=== PATIENT | female | born 1990 | race Caucasian/White ===

== ENCOUNTER 2020-05-16 09:35 | Emergency (ER) | payer BC, SELFPAY ==
--- NOTE | ~2020-05-16 | XR_ITS ---
EXAMINATION: XR ankle RT min 3V INDICATION: Right ankle pain TECHNIQUE: Four views of the right ankle are obtained. COMPARISON: None available FINDINGS: There is no fracture, dislocation, or subluxation. The bones, soft tissues, and joint space s are normal. IMPRESSION: 1. No acute osseous abnormality. Reviewed, dictated and finalized at location A.
[2020-05-16 09:50] VITALS: BP 124/88; PULSE 100; RESP 18; TEMP 36.5; O2SAT 100
--- NOTE | 2020-05-16 09:52 | ED.LOWEXIN ---
HPI - Extremity Injury (Lower) General Chief Complaint: Extremity Injury, Lower Stated Complaint: Extremity injury, lower Time Seen by Provider: 05/16/20 09:53 Source: patient and RN notes reviewed History of Present Illness HPI Narrative: Patient is a 29-year-old female who presents the urgent care with complaints of a right ankle injury. Patient states that she was walking down more to her mailbox yesterday and ended up twisting her right foot. Patient states that she has been using ibuprofen for the pain. Patient is also use an Gordo wrap to the foot. No other acute complaints or injuries. Denies hitting her head or any loss of consciousness. No other acute complaints. No acute distress noted. Patient read the plan of care. Related Data Allergies Allergy/AdvReac Type Severity Reaction Status Date / Time No Known Allergies Allergy Unverified 05/16/20 09:41 Review of Systems Review of Systems: Narrative: CONSTITUTIONAL: Denies fever, chills, or sweats. EYES: Denies visual changes, redness, or discharge. ENT: Denies rhinorrhea, congestion, sore throat, or otalgia. CARDIOVASCULAR: Denies chest pain, palpitations, or edema. RESPIRATORY: Denies cough or dyspnea. GASTROINTESTINAL: Denies abdominal pain, nausea, vomiting, or diarrhea. GENITOURINARY: Denies dysuria or hematuria. SKIN: Denies rash or itching. MUSCULOSKELETAL: Reports of right ankle pain due to fall NEUROLOGIC: Denies headache, numbness, or weakness. All other systems reviewed are negative, except as documented in HPI. PMFSH Comments At the time of my signature, I reviewed and agree with the nursing past medical, surgical, social, and family history. There is no relevant family history pertinent to the patient complaint. Exam Narrative: Exam Narrative: GENERAL: This is a well-nourished, well-developed patient, in no apparent distress. HEAD: normocephalic, atraumatic. EYES: PERRL. Sclera clear/white. Vision is grossly intact. EARS: External ears normal NOSE: External nose normal with no obvious nasal discharge, nares without redness, no rhinorrhea. THROAT: Mucous membranes moist, posterior pharynx clear. NECK: Neck supple SKIN: warm, intact with no suspicious lesions or rash, good texture and turgor. NEURO: awake, alert, and oriented to person, place and time. There were no obvious focal neurologic abnormalities. EXTREMITIES: No obvious deformity, ecchymosis, erythema or edema noted to the right lower extremity. Moderate tenderness to the lateral aspect of the right foot/right malleolus. Range of motion not tested due to pain. Positive strong right pedal pulse with capillary refill less than 2 seconds. Course Vital Signs Vital signs: Vital Signs Temperature 97.7 F 05/16/20 09:50 Pulse Rate 100 05/16/20 09:50 Respiratory Rate 18 05/16/20 09:50 Blood Pressure 124/88 05/16/20 09:50 Pulse Oximetry 100 05/16/20 09:50 Temperature 97.7 F 05/16/20 09:50 Pulse Rate 100 05/16/20 09:50 Respiratory Rate 18 05/16/20 09:50 Blood Pressure 124/88 05/16/20 09:50 Pulse Oximetry 100 05/16/20 09:50 Reviewed MDM - Extremity Injury (Lower) MDM Narrative Medical decision making narrative: Reviewed x-ray results with the patient. She is aware the x-ray was negative for any abnormality or deformity. Advised the patient to continue elevating, using ice and ibuprofen as needed for pain and comfort. May also continue to use the Gordo wrap as well as wearing a supportive shoe. Follow-up with your PCP within 2 to 5 days or for worsening symptoms or failure to improve. Differential Diagnosis Differential diagnosis: Likely ankle sprain and strain, fracture of femur and ankle fracture Imaging Data Radiologist's impression: [facility] [address] [place] [address] XRay Report Signed Patient: Erin Mendez : [id number]#: [id number] Age/Sex: 29 / FAcct:[id number] Loc: [facility] ADM Date: 05/16/20 At
== END 2020-05-16 10:11 | disposition home or self-care (01) ==
PROVIDERS: Emergency Provider Nurse Practitioner Family; PCP Physician Assistant
DX: S93.401A Sprain of unspecified ligament of right ankle, initial encounter (principal); S96.911A Strain of unspecified muscle and tendon at ankle and foot level, right foot, initial encounter; X50.9XXA Other and unspecified overexertion or strenuous movements or postures, initial encounter
CPT/HCPCS: 73610; 99213; G0463